=== PATIENT | male | born 1980 | race Caucasian/White ===

== ENCOUNTER → 2017-03-29 | Outpatient (CLI) | payer OTHER, BC ==
[~2017-03-29] MED LIST: HYZ/10015 PO; IBUP-1450 PO
--- NOTE | 2017-03-29 15:00 | DIAGNOSTIC IMAGING REPORT ---
MRI OF THE THORACIC SPINE WITHOUT CONTRAST CLINICAL HISTORY: Back pain following fall. Evaluate for cord compression. COMPARISON: None. TECHNIQUE: Utilizing a 1.5 Katharina magnet and dedicated coil, multiplanar, multiecho imaging of the thoracic spine was performed without IV contrast. FINDINGS: Alignment of the thoracic spine is anatomic. Vertebral body heights are maintained. Multiple Schmorl's nodes are noted. There is no evidence for fracture within the thoracic spine. Thoracic cord signal and caliber are normal. No intracanalicular mass or fluid collection. Central canal and neural foramina patent within the thoracic spine. Paravertebral soft tissues are unremarkable. IMPRESSION: 1. No acute traumatic findings within the thoracic spine. 2. Normal thoracic cord signal and caliber. 3. Patent central canal and neural foramen. 4. Multiple Schmorl's nodes. No compression fractures. Electronically signed by: Alek Pham M.D. 03/29/2017 2:59 PM Dictated Date/Time: 03/29/2017 2:55 PM
== END | disposition home or self-care (01) ==
LOC: C.MRIBC 13:02
PROVIDERS: ATTEND Orthopaedic Surgery Orthopaedic Surgery of the Spine
DX: G95.20 Unspecified cord compression (principal)

== ENCOUNTER → 2017-08-01 | Outpatient (CLI) | payer OTHER, BC ==
--- NOTE | 2017-08-01 17:16 | DIAGNOSTIC IMAGING REPORT ---
MRI LUMBAR SPINE W/O CONTRAST CLINICAL HISTORY: Low back pain. History of trauma. Bilateral hip pain. Patient found physical therapy. TECHNIQUE: Sagittal and axial T1, T2 and STIR images were obtained. COMPARISON STUDY: No previous studies for comparison. OBSERVATIONS: The vertebral bodies and posterior elements appear intact. There is no abnormal bony signal present to suggest a marrow replacement process. L1-2: No disc protrusions or extrusions. No evidence of spinal canal or neural foraminal compromise. L2-3: No disc protrusions or extrusions. No evidence of spinal canal or neural foraminal compromise. L3-4: No disc protrusions or extrusions. No evidence of spinal canal or neural foraminal compromise. L4-5: No disc protrusions or extrusions. No evidence of spinal canal or neural foraminal compromise. L5-S1: There is a small to moderate central disc protrusion with mild deformity of the anterior thecal sac. There is mild facet joint arthropathy. There is bilateral foraminal narrowing left more severe than right. The conus medullaris and cauda equina appear normal. IMPRESSION: 1. Small to moderate central disc protrusion at the L5-S1 level with mild deformity of the anterior thecal sac 2. Facet joint arthropathy with bilateral foraminal narrowing left more severe than right Electronically signed by: Yury Ragsdale M.D. 08/01/2017 5:15 PM Dictated Date/Time: 08/01/2017 5:11 PM
== END | disposition home or self-care (01) ==
LOC: C.MRIBC 16:31
PROVIDERS: ATTEND Orthopaedic Surgery Orthopaedic Surgery of the Spine
DX: M51.27 Other intervertebral disc displacement, lumbosacral region (principal); M12.9 Arthropathy, unspecified

== ENCOUNTER 2019-07-27 11:01 | Inpatient (IN) ==
--- NOTE | 2019-07-18 09:33 | PAT Medication Instructions ---
Medication Instructions Date of Service July 18, 2019 Home Medications losartan 50 mg PO QAM DO NOT take the morning of surgery losartan 50 mg PO QAM Other Notes If you have any questions please call us at [phone] or [phone] or [phone] or [phone]
--- NOTE | 2019-07-19 08:21 | Anesthesiology Consultation ---
Date of Service July 19, 2019 Assessment & Plan (1) Encounter for pre-operative examination: Chart Review Chart Review: Pending: Refer to Additional Notes / Consult section (pending preop testing (labs, EKG, CXR)) and Patient seen in Pre Admission Testing Teaching & Discussion Pre-Anesthesia Teaching/Discussion Notes: Instructed NPO after midnight before surgery,except medications with 15 cc of water. Medication instructions prov ided according to the PAT guidelines. History Surgery Operation Date: 07/27/19 10:25 Proposed Procedures p L5-S1 Decompression and Fusion with Spinal Cord Monitoring - Roger Crowe DO Height/Weight Height: 5 ft 9 in Weight: 104 kg Allergies Allergy/AdvReac Type Severity Reaction Status Date / Time No Known Allergies Allergy Verified 07/12/19 09:59 Medications Home Medications Medication Instructions Recorded Confirmed Last Taken losartan 50 mg PO QAM 07/12/19 07/12/19 Unknown Past Medical History Medical History Lumbosacral facet joint syndrome LBP with hip radiation, intermittent feet neuropathy Hypertension Exercise / Class Metabolic Activity II 4-5 Yardwork/Stairs/Walk up hill Past Family History Family History Father Family history of diabetes mellitus Past Surgical History Surgical History History of vasectomy History of herniorrhaphy umbilical History of rotator cuff surgery left Past Anesthesia History No Hx of Anesthesia Complications and No Family Hx of Anesthesia Complications History of PONV No Hx of PONV and No Hx of Motion Sickness Social History Smoking Status: Never smoker Do You Dip or Chew Tobacco: No Hx Alcohol Use: Yes Alcohol type: beer, wine and hard liquor alcohol intake frequency: holidays/special occasions only Hx Substance Use: No substance use type: does not use Review of Systems Patient denies chest pain, shortness of breath, dyspnea on exertion, reflux, cough, wheezing, palpitations. Physical Exam Vital Signs VITALS BP 134/84 P 57 TEMP 97.9 SP02 97%RA RESP 16 PHYSICAL Full neck and c-spine range of motion. Full TMJ range of motion. TMD 4 finger breaths Mallampati Score 3 Dentition: intact, crown on molar Lungs: clear throughout to auscultation Cardiac: regular rate and rhythm, no murmurs noted Spine: normal Extremities: no edema Trimmed little
--- NOTE | 2019-07-19 09:06 | XRay Report ---
XR chest Pre-admission PA/Lat CLINICAL HISTORY: pat preoperative evaluation COMPARISON STUDY: No previous studies for comparison. FINDINGS: The bones soft tissues and hemidiaphragms are normal. The cardiomediastinal silhouette is n ormal. The lungs are clear. The pulmonary vasculature is normal. IMPRESSION: Negative chest. The above report was generated using voice recognition software. It may contain grammatical, syntax or spelling errors. Electronically signed by: Jag David M.D. 07/19/2019 9:04 AM
[2019-07-19 10:27] LABS: Basophils # (auto) 0.03 K/uL (0-0.2); Basophils % (auto) 0.5 %; Eosinophils % (auto) 1.7 %; Hematocrit (blood only) 43.8 % (42-52); Hemoglobin 15.1 g/dL (14.0-18.0); Immature Granulocytes # (auto) 0.01 K/uL (0.00-0.02); Immature Granulocytes % (auto) 0.2 %; Lymphocytes # (auto) 2.38 K/uL (1.2-3.4); Lymphocytes % (auto) 39.5 %; Mean Corpuscular Hemoglobin 30.5 pg (25-34); Mean Corpuscular Hgb Conc 34.5 g/dL (32-36); Mean Corpuscular Volume 88.5 fL (80-100); Mean Platelet Volume 9.7 fL (7.4-10.4); Monocytes # (auto) 0.54 K/uL (0.11-0.59); Neutrophils # (auto) 2.96 K/uL (1.4-6.5); Neutrophils % (auto) 49.1 %; Platelet Count 229 K/uL (130-400); RDW Coefficient of Variation 12.9 % (11.5-14.5); RDW Standard Deviation 40.9 fL (36.4-46.3); Red Blood Count 4.95 M/uL (4.7-6.1); White Blood Count 6.02 K/uL (4.8-10.8)
[2019-07-19 10:32] LABS: Appearance Urine Clear (Clear); Bilirubin Urine Negative (Negative); Blood Urine Negative (Negative); Color Urine Yellow; Glucose Urine UA Negative (Negative); Ketones Urine Negative (Negative); Leukocyte Esterase Urine Negative (Negative); Nitrite Urine Negative (Negative); Protein Urine Negative (Negative); Specific Gravity Urine 1.024 (1.000-1.030); Urobilinogen Urine Negative (Negative); pH Urine 7.5 (4.5-7.5)
[2019-07-19 10:37] LABS: BUN Creatinine Ratio 11.5 (10-20); Calcium 8.8 mg/dl (8.5-10.1); Est GFR (African American) 109.6; Est GFR (Non-African American) 94.6; Potassium 4.3 mmol/L (3.5-5.1)
[2019-07-19 10:38] LABS: Partial Thromboplastin Time 25.9 Seconds (21.0-31.0); Prothrombin Time 10.5 Seconds (9.0-12.0)
[~2019-07-27 11:01] MED LIST changes: +ACETAMINOPHEN 500 MG TAB PO SCH; +CEFAZOLIN 2000MG 2,000 MG/15 ML SYR IV SCH; +CeleBREX 200 MG CAP PO SCH; +GABAPENTIN 900 MG DOSE PO SCH; -HYZ/10015 PO; -IBUP-1450 PO; +LR 15ML/HR IV SCH
[2019-07-27] MEDS ORDERED: ePHEDrine sulfate 50 MG/ML AMP IV PRN (12:11)
[2019-07-27] MEDS ORDERED: fentaNYL citrate 100 MCG/2 ML VIAL IV PRN (12:11)
[2019-07-27] MEDS ORDERED: MoRPHine SULFATE 10 MG/ML CARP/VIAL IV PRN (12:11)
[2019-07-27] MEDS ORDERED: ATROPINE SULFATE 0.1 MG/ML 10ML SYR IV PRN (12:11)
[2019-07-27] MEDS ORDERED: ONDANSETRON INJ 2 MG/ML 2 ML VIAL IV PRN ×2 (12:11→17:07)
[2019-07-27] MEDS ORDERED: ROCURONIUM BROMIDE 10 MG/ML 5 ML VIAL ONE ×3 (12:24→13:37)
[2019-07-27] MEDS ORDERED: fentaNYL citrate 100 MCG/2 ML VIAL ONE (12:24)
[2019-07-27] MEDS ORDERED: ONDANSETRON INJ 2 MG/ML 2 ML VIAL ONE (12:24)
[2019-07-27] MEDS ORDERED: DEXAMETHASONE SOD INJ 4 MG/ML VIAL ONE (12:24)
[2019-07-27] MEDS ORDERED: PROPOFOL IV EMULSION 10 MG/ML 20 ML VIAL IV ONE ×2 (12:24→13:37)
[2019-07-27] MEDS ORDERED: LIDOCAINE HCL 2% 2 ML VIAL/AMP(20MG/ML) INFIL ONE (12:24)
[2019-07-27] MEDS ORDERED: MIDAZOLAM HCL 1 MG/ML 2ML VIAL ONE (12:24)
--- NOTE | 2019-07-27 12:38 | History & Physical Bridge Note ---
Date of Service July 27, 2019 History & Physical Bridge Note I have examined the patient, reviewed the History & Physical and in the interval since the performance of the History & Physical I have noted the following changes of clinical significance: no changes noted
--- NOTE | 2019-07-27 12:39 | History & Physical Report ---
Date of Service July 27, 2019 Assessment & Plan (1) Lumbar disc herniation with radiculopathy: Decompression and fusion L5-S1 Present on Admission?: Yes History of Present Illness Chief Complaint: Back and leg pain Primary Care Provider: Meryl Lr MD This is a 39-year-old male that presents with chronic persistent back and leg pain. After failing extensive course of nonoperative care he is here for surgical intervention. Allergies Allergy/AdvReac Type Severity Reaction Status Date / Time No Known Allergies Allergy Verified 07/27/19 11:26 Home Medications Home Medications Medication Instructions Recorded Confirmed Type losartan 50 mg PO QAM 07/12/19 07/27/19 History Past Med/Surg History Medical History Lumbosacral facet joint syndrome LBP with hip radiation, intermittent feet neuropathy Hypertension Surgical History History of vasectomy History of herniorrhaphy umbilical History of rotator cuff surgery left Family History Father Family history of diabetes mellitus Social History Preferred Language: Hungarian Communication Ability: Effective Clinical Team Lead Required: No Beliefs That Will Affect Care: None Current Living Situation: Significant Other Other Information That Helps Us Care for You: No Feels Safe at Home: Yes Safety Concerns: Feels Safe At This Time Smoking Status: Never smoker Do You Dip or Chew Tobacco: No ; Second Hand Exposure: No ; Tobacco Cessation Education Requested by Patient: No Hx Alcohol Use: Yes Alcohol type: beer, wine and hard liquor Hx Substance Use: No Results & Data Vital Signs (Past 12 Hours) Vital Signs Temp Pulse Resp BP Pulse Ox 07/27/19 11:26 36.6 C 55 L 20 140/91 98
[2019-07-27] MEDS ORDERED: BUPIVACAINE/EPINEPHRINE 0.5% MPF 1:200,000 30 ML VIAL ONE (12:56)
[2019-07-27] MEDS ORDERED: BACITRACIN INJ 50,000 UNIT VIAL ONE (12:56)
[2019-07-27] MEDS ORDERED: KETAMINE HCL INJ 50 MG/ML 10 ML VIAL ONE (13:33)
[2019-07-27] MEDS ORDERED: HYDROmorphone INJ 2 MG/ML SYR/VIAL ONE (13:34)
[2019-07-27] MEDS ORDERED: FLOSEAL HEMOSTATIC MATRIX 10ML TOP ONE (14:37)
[2019-07-27] MEDS ORDERED: GLYCOPYRROLATE 0.2 MG/ML VIAL ONE (14:49)
[2019-07-27] MEDS ORDERED: NEOSTIGMINE METHYLSULFATE 1 MG/ML 10ML VIAL ONE (14:49)
--- NOTE | 2019-07-27 14:55 | Operative Report ---
Post Operative Report Pre & Post Diagnosis Operation Date: 07/27/19 13:05 Pre-Op Diagnosis: Lumbar disc herniation with radiculopathy L5-S1 Post-Op Diagnosis: Lumbar disc herniation L5-S1 with radiculopathy Procedure Operation Date: 07/27/19 13:05 Actual Procedures #1 lumbar decompression with bilateral medial facetectomies foraminotomies L5- S1. #2 posterior spinal fusion L5-S1 per #3 placement posterior instrumentation L5-S1. #4 interbody fusion L5-S1 per #5 placement of titanium 13 x 26 mm cage at L5-S1. #6 basement of local autograft in the posterior lateral gutters. #7 placement infuse collagen sponge, master graft in the posterior gutters and ostial amp and interbody space. Surgeon Roger Crowe, DO Alignment Mechanic Aleks Evans Estimated Blood Loss 150 Findings See Below The patient is 5 foot 9 inches tall weighing over 103 kg with a BMI in excess of 33. Patient's body habitus did increase technical difficulty adding a least 25% increase in operative time. Specimens None Indications This is a 39-year-old male presents with above-mentioned diagnosis after failing extensive course of nonoperative care like to undergo the above-mentioned procedure. Description of Procedure Patient was met with identified and informed consent obtained. Patient was then taken to the operative suite underwent intubation placed in a prone position on the Eduardo table on top of the Kimo frame. All bony prominences well-padded eyes inspected to ensure no external pressure placed upon the peer at this point the lumbar spine was prepped and draped in the normal sterile fashion. Sharp dissection with the assistance of Bovie cautery was performed down to and exposing the lamina and transverse process of L5 and the sacral ala bilaterally. From caudal cephalad fashion complete laminectomy of L5 was performed including bilateral medial facetectomies and foraminotomies. Large disc herniation was noted at the 5 1 level. Pedicle screws were then placed in L5 and S1 levels bilaterally with assistance of fluoroscopy the process lilibeth placed by way of a transforaminal approach and left complete discectomy was performed in the endplates curetted to subcortical bleeding bone. A 13 x 26 mm titanium cage filled with osteo-amp bone graft tapped in position. The rods were then locked in final position bilaterally. Transverse processes of L5 and sacral ala bur to subcortical bleeding bone. Infuse collagen sponge master graft and local autograft placed in the posterior lateral gutters. 15 round YULIANA drain inserted. Incision was closed with 1 Vicryl in the fascia 2-0 Vicryl subcutaneous and 4-0 Monocryl for final skin closure. Steri-Strip sterile dressings placed. Patient will continue PACU in stable condition. Please note Aleks Evans present throughout the entire procedure involved in patient positioning complex portions of the surgery and final skin closure. Lastly spinal cord monitoring was utilized that procedure and no changes noted. I attest to the content of the Intraoperative Record and any orders documented therein. Any exceptions are noted below.
--- NOTE | 2019-07-27 14:58 | Fluoroscopy Report ---
LUMBAR SPINE, INTRAOPERATIVE FLUOROSCOPY HISTORY: L5-S1 decompression and fusion. FLUOROSCOPY TIME: 22 seconds. FINDINGS: Intraoperative fluoroscopy was provided for the lumbar spine. 2 fluoroscopic spot images we re obtained. Posterior decompression fusion at L5-S1 with pedicle screws and rods. The hardware appea rs intact. IMPRESSION: Fluoroscopy provided for a L5-S1 posterior decompression and fusion. Electronically signed by: Pa Escobar M.D. 07/27/2019 2:57 PM
--- NOTE | 2019-07-27 15:43 | Anesthesiology Progress Note ---
Date of Service July 27, 2019 Anesthesia Post Procedure Vital Signs Vital Signs: Temp Pulse Pulse Resp BP BP Pulse Ox 07/27/19 15:33 75 16 121/72 99 07/27/19 15:25 75 18 128/72 99 07/27/19 15:16 36.5 C 87 16 123/75 94 07/27/19 11:26 36.6 C 55 L 20 140/91 98 Transfer of Care Handoff Completed per policy Notes Mental Status: alert / awake / arousable Patient Amnestic to Procedure: Yes Nausea / Vomiting: adequately controlled Pain: adequately controlled Airway Patency, RR, SpO2: stable & adequate BP & HR: stable & adequate Hydration State: stable & adequate Anesthetic Complications: no major complications apparent
[2019-07-27] MEDS ORDERED: SOD PHOSPHATE/SOD BIPHOSPHATE ENEMA 132 ML BTL PR PRN (17:07)
[2019-07-27] MEDS ORDERED: FAMOTIDINE 20 MG TAB PO PRN (17:07)
[2019-07-27] MEDS ORDERED: DO NOT ADMINISTER PNEUMOCOCCAL VACCINE PRN (17:07)
[2019-07-27] MEDS ORDERED: PROMETHAZINE HCL 12.5 MG in SODIUM CHLORIDE 0.9% 50 ML IV PRN (17:07)
[2019-07-27] MEDS ORDERED: BISACODYL 10 MG SUPP PR PRN (17:07)
[2019-07-27] MEDS ORDERED: LORazepam 0.5 MG TAB PO PRN (17:07)
[2019-07-27] MEDS ORDERED: NALOXONE HCL 0.4 MG/1 ML VIAL/CARP IV PRN (17:07)
[2019-07-27] MEDS ORDERED: DO NOT ADMINISTER FLU VACCINE PRN (17:07)
[2019-07-27] MEDS ORDERED: ALUMINUM/MAGNESIUM SUSP 30 ML UDC PO PRN (17:07)
[2019-07-27] MEDS ORDERED: MAGNESIUM HYDROXIDE SUSP 30 ML UDC PO PRN (17:07)
[2019-07-27] MEDS ORDERED: METOCLOPRAMIDE HCL INJ 5 MG/ML 2 ML VIAL IV PRN (17:07)
[2019-07-27] MEDS ORDERED: LORazepam 0.5 MG/1 ML VIAL IV PRN (17:07)
[2019-07-27] MEDS ORDERED: ONDANSETRON 4 MG TAB PO PRN (17:07)
[2019-07-27] MEDS ORDERED: ACETAMINOPHEN 1,000 MG/100 ML VIAL IV PRN (17:07)
[2019-07-27] MEDS ORDERED: HYDROmorphone INJ 0.5 MG/0.5 ML SYR IV PRN (17:07)
[2019-07-27] MEDS: KETOROLAC 30 MG/ML VIAL IV SCH (17:48)
[2019-07-27] MEDS: LACTATED RINGER'S 1,000 ML IV SCH (17:48)
[2019-07-27] MEDS: DOCUSATE SODIUM/SENNA 50/8.6MG TAB PO SCH (20:28)
[2019-07-27] MEDS: CEFAZOLIN 2000MG 2,000 MG/15 ML SYR IV SCH (20:29)
[2019-07-28] MEDS: KETOROLAC 30 MG/ML VIAL IV SCH ×3 (00:18→13:32)
[2019-07-28] MEDS: LACTATED RINGER'S 1,000 ML IV SCH (00:22)
[2019-07-28 05:55] LABS: Hematocrit (blood only) 36.8 % (42-52); Hemoglobin 12.5 g/dL (14.0-18.0); Immature Granulocytes # (auto) 0.02 K/uL (0.00-0.02); Immature Granulocytes % (auto) 0.2 %; Lymphocytes # (auto) 1.12 K/uL (1.2-3.4); Lymphocytes % (auto) 10.3 %; Mean Corpuscular Hemoglobin 29.9 pg (25-34); Monocytes # (auto) 0.62 K/uL (0.11-0.59); Monocytes % (auto) 5.7 %; Neutrophils # (auto) 9.12 K/uL (1.4-6.5); Neutrophils % (auto) 83.8 %; Platelet Count 220 K/uL (130-400); RDW Coefficient of Variation 12.6 % (11.5-14.5); RDW Standard Deviation 40.3 fL (36.4-46.3); Red Blood Count 4.18 M/uL (4.7-6.1); White Blood Count 10.88 K/uL (4.8-10.8)
[2019-07-28] MEDS: POLYETHYLENE (MIRALAX) 17 GM PACK PO SCH ×4 (06:21→23:25)
[2019-07-28] MEDS: CEFAZOLIN 2000MG 2,000 MG/15 ML SYR IV SCH (06:22)
[2019-07-28 06:33] LABS: BUN Creatinine Ratio 20.5 (10-20); Calcium 8.6 mg/dl (8.5-10.1); Est GFR (African American) 102.2; Est GFR (Non-African American) 88.2; Potassium 4.2 mmol/L (3.5-5.1)
--- NOTE | 2019-07-28 07:49 | Orthopedic Progress Note ---
Date of Service July 28, 2019 Assessment & Plan (1) Lumbar disc herniation with radiculopathy: We will continue with GI DVT prophylaxis. Continue with mobilization as well. Falls going well he may be discharged home tomorrow. Subjective Patient was seen bedside postoperative day 1 in room 308. He is doing well this morning. He has some soreness in the back itself but the leg pain and hip pain that he had prior to surgery seem to be much better. He has been up and walking and tolerating this well. He is utilizing pain medication. He denies any other numbness, tingling, or paresthesias. Physical Exam Physical Exam: On exam he is alert and oriented. His abdomen soft nontender calves are supple nontender. Strength and sensation both intact his YULIANA drains in place and has had 30 cc of drainage in the last shift. His dressing is clean dry and intact. Results & Data Vital Signs (Past 12 Hours) Vital Signs Temp Pulse Resp BP Pulse Ox 07/28/19 07:14 36.8 C 95 H 18 143/77 H 97 07/28/19 03:51 36.9 C 99 H 18 119/67 95 07/27/19 23:45 36.5 C 97 H 16 116/70 93 07/27/19 20:00 36.6 C 92 H 18 135/82 96
[2019-07-28] MEDS: LOSARTAN POTASSIUM 50 MG TAB PO SCH (08:26)
[2019-07-28] MEDS: OXYCODONE HCL IR 5 MG TAB (IMMEDIATE RELEASE) PO PRN ×2 (14:52→20:16)
[2019-07-28] MEDS: DOCUSATE SODIUM/SENNA 50/8.6MG TAB PO SCH (20:18)
[2019-07-28] MEDS: ACETAMINOPHEN 500 MG TAB PO PRN (20:20)
[2019-07-29] MEDS: OXYCODONE HCL IR 5 MG TAB (IMMEDIATE RELEASE) PO PRN ×5 (00:14→20:55)
[2019-07-29] MEDS: POLYETHYLENE (MIRALAX) 17 GM PACK PO SCH ×4 (05:48→23:15)
[2019-07-29] MEDS: LOSARTAN POTASSIUM 50 MG TAB PO SCH (08:43)
--- NOTE | 2019-07-29 09:05 | Orthopedic Progress Note ---
Date of Service July 29, 2019 Assessment & Plan (1) Lumbar disc herniation with radiculopathy: At this point we will continue GI DVT prophylaxis. We will continue to advance his activities. He has not had a bowel movement we will keep him here in the hospital today and likely discharge him home tomorrow. Subjective Patient is postoperative day #2. Overall he is doing well. He has some pain in his back especially when he goes from sitting to standing position per he is not having any radicular complaints. He denies any other numbness, tingling, paresthesias. He has not yet had a bowel movement. Physical Exam Physical Exam: On exam he is alert and oriented. His strength and sensation both intact. His abdomen is soft and nontender his calves are supple nontender. Results & Data Vital Signs (Past 12 Hours) Vital Signs Temp Pulse Resp BP BP Pulse Ox 07/29/19 08:43 132/82 07/29/19 07:29 36.6 C 63 18 118/79 97 07/28/19 23:09 37.0 C 81 16 127/75 97
[2019-07-29] MEDS: TRAMADOL HCL 50 MG TABLET PO PRN ×2 (15:25→19:51)
[2019-07-29] MEDS: DOCUSATE SODIUM/SENNA 50/8.6MG TAB PO SCH (20:56)
[2019-07-30] MEDS: ACETAMINOPHEN 500 MG TAB PO PRN (06:21)
[2019-07-30] MEDS: POLYETHYLENE (MIRALAX) 17 GM PACK PO SCH (06:21)
[2019-07-30] MEDS: LOSARTAN POTASSIUM 50 MG TAB PO SCH (08:37)
[2019-07-30] MEDS: TRAMADOL HCL 50 MG TABLET PO PRN ×2 (08:42→13:10)
--- NOTE | 2019-07-30 09:53 | Discharge Summary ---
Date of Service July 30, 2019 Admission HPI Per Admitting Provider This is a 39-year-old male that presents with chronic persistent back and leg pain. After failing extensive course of nonoperative care he is here for surgical intervention. Principal Diagnosis Herniated was pulposis with radiculopathy Discharge Data Allergies Allergy/AdvReac Type Severity Reaction Status Date / Time No Known Allergies Allergy Verified 07/27/19 11:26 Consultations 07/27/19 17:07 Consult Case Management - Discharge Planning Routine Procedures Performed Operation Date: 07/27/19 13:05 Actual Procedures p L5-S1 Decompression and Fusion, Interbody fusion L5-S1, Bone Morphogenetic Protein; Spinal Cord Monitoring(Not Applicable) - Roger Crowe DO Ordered Studies 07/27/19 13:05 FL fluoroscopy <1hr Routine FL lumbar spine 2-3V Routine Hospital Course (1) Lumbar disc herniation with radiculopathy: Patient with lumbar decompression fusion tolerated this well was taken to orthopedic for postoperative postop day 1 is up and ambulating leg pain improved. Progressed the postop day #2. Postop day #3 leg pain improved YULIANA drain decreased appropriately. Subsequently discharged home. Patient is neurologically intact. Discharge orders instructions can be found the chart for further review. Total Time Total Time Spent Total Time Spent (In Minutes): 20 minutes Discharge Plan Discharge Items Patient Disposition: Home - Self-Care Reason For Visit: LUMBAR INTERVERTEBRAL DISC DISORDERS W/RADICULOPAT Discharge Diagnosis: Lumbar spinal stenosis with radiculopathy Activity: Per Instructions section Non-emergency contact: Primary Care Provider Call non-emergency contact if: you have any medication questions Follow-up/Referrals: Meryl Lr MD [Primary Care Provider] - Diet: Regular Addtl Attending Provider Instructions: ACTIVITY RECOMMENDATIONS: SELF CARE INSTRUCTIONS AFTER THORACIC/LUMBAR FUSIONS 1. You may walk to your tolerance. It is good exercise for your legs and back. Expect some back and intermittent leg aches and pains. 2. You may perform "counter-top" level activities (make a sandwich, erin with a project, etc.). 3. No bending or lifting of more than 10 pounds or back twisting of any nature (roll like a log when turning in bed). 4. You may ride in a car for 20-30 minutes at a time. No driving until after your first visit with your doctor. 5. Frequent changes of position and restricting sitting to 30 minutes at a time will help limit the amount of back spasms and stiffness you may experience. 6. You may discontinue the use of ambulatory aids (cane, crutches, etc.) once your strength and confidence allow. 7. You may package dye stand loader the shower and let water strike your incision when you arrive home at least once daily. Do not take a tub bath, sit in a hot tub or go into a swimming pool until after your first recheck in the office. SPECIAL CARE INSTRUCTIONS: VERY IMPORTANT TO READ AND REVIEW A. Your surgical incision has been closed with a cosmetic suture under the skin that will dissolve in about 6 weeks. In 14 days, you can use a pair of clean scissors and cut the suture that is left outside of the skin at the ends of your incision. 1. The small skin tapes can be removed 7 days after surgery if they have not fallen off by that point. 2. You may keep the wound open to air as much as possible to promote healing after post-op day number 5 unless told otherwise by your doctor. 3. If you think the wound looks like it is becoming infected (redness or worsening drainage) and/or you are experiencing fever, chill or worsening back pain and muscle spasms, contact the office so that we may e valuate you as soon as possible. B. Complications are uncommon, but please contact us if you have any signs or symptoms of: 1. wound infection (fever higher than 102.5 degrees F, redness, separation of wound, drainage, or increasing pain from the incision) 2. blood clots in legs (pain, swelling, redness and warmth in legs) 3. urinary tract infection (fever higher than 102.5 degrees F, burning upon urination or increased frequency of urination) 4. nerve problems (inability to walk on your toes or heels, numbness, loss of bowel or bladder control) 5. any other symptoms that concern you C. Please call the office at if you have any concerns or questions about your operation or recovery. D. No smoking! Smoking drastically decreases the chance of a solid fusion. E. Do not take any anti-inflammatory medications (Indocin, Advil, Motrin, Aspirin, Naprosyn, etc.) as these may inhibit the chance of a solid fusion. Tylenol is okay to take for pain. MANAGING PAIN AFTER SPINAL SURGERY 1. Narcotic medication is intended for short-term use and will be provided for surgical pain. Surgical pain usually lasts for a period of 4-6 weeks. Narcotic medication includes Percocet, Vicodin, Darvocet, Tylenol #3 or Lortab. 2. Longer-term pain is more appropriately treated with non-narcotic medication such as Tylenol ES. 3. Muscle spasm is not appropriately treated with narcotics. Muscle relaxers such as Soma, Flexeril or Skelaxin can be used along with Tylenol ES. 4. Remember that we all live with some "aches and pains". This is not unusual or uncommon after an injury or as we get older. a. Back pain is expected and may include muscle spasms for 4 to 6 weeks after surgery. The pain should gradually improve. If the pain worsens for no apparent reason, please contact the office. b. Intermittent leg pain may also be experienced and should not be concerned about unless it worsens for no apparent reason. If so, please contact the office. 5. We will provide appropriate medication within the normal guidelines of their prescribed use. We will also be very cautious and aware of potential abuse and extended duration of patients' medication needs. a. Pain medications are for your comfort and to assist with sleep and rest so that the tissue can heal. They are not provided in order to return to normal activity and should not be used through the day. To do so or worsening pain at night can result from ongoing tissue damage and development of tolerance to the prescribed medicine. 6. Please allow 2-3 days to process refills. Prescriptions will not be mailed but must be picked up at the office. FOLLOW UP VISIT: Keep your scheduled follow-up appointment. Any questions, please call the office at . Pending Studies at Discharge: No Stand-Alone Forms: [facility] Medications and DC Order Prescriptions: New tramadol 50 mg Tablet 50 mg PO Q4H PRN (Reason: Pain, Moderate) Qty: 30 RF: 0 oxycodone 5 mg Tablet 5 mg PO Q4H PRN (Reason: Pain, Severe) Qty: 30 RF: 0 Continued losartan 50 mg Tablet 50 mg PO QAM RF: 0 Discharge Orders: Discharge Order (Routine); Ordered 07/30/19 Ordered By: Roger Crowe Admission Data Admit Date/Time: 07/27/19 14:57 Attending Provider: Roger Crowe Admit Provider: Roger Crowe Primary Care Provider: Meryl Lr
== END 2019-07-30 13:45 | disposition home or self-care (01) | DRG 455 ==
LOC: ASU 11:01 → 3E 14:57
DX: I10 Essential (primary) hypertension; Z79.899 Other long term (current) drug therapy; M51.17 Intervertebral disc disorders with radiculopathy, lumbosacral region